=== PATIENT | female | born 1945 | race Caucasian/White ===

== ENCOUNTER 2025-05-02 06:10 | Observation (INO) ==
--- NOTE | 2025-04-06 15:00 | PAT Medication Instructions ---
Medication Instructions Date of Service April 06, 2025 Home Medications Medication Instructions Recorded oxycodone-acetaminophen 5 mg-325 2 tab PO Q6H PRN pain #20 tabs 04/22/23 mg tablet (Percocet) warfarin 2 mg tablet 4 mg (2 x 2 mg) PO DAILY #60 tabs 04/22/23 hydrochlorothiazide 12.5 mg capsule 25 mg PO QAM psyllium husk 3.4 gram/5.4 gram oral powder (Metamucil) 1 tbsp PO DAILY PRN Constipation oxycodone-acetaminophen 5 mg-325 mg tablet (Percocet) 2 tab PO Q6H PRN pain warfarin 2 mg tablet 4 mg (2 x 2 mg) PO DAILY amlodipine 5 mg tablet 5 mg PO PM ibandronate 150 mg tablet 150 mg PO MONTHLY multivitamin 1 tab PO QAM rosuvastatin 10 mg tablet 10 mg PO HS valsartan 40 mg tablet 40 mg PO HS Continue as directed ibandronate 150 mg tablet 150 mg PO MONTHLY ASK your prescriber and surgeon warfarin 2 mg tablet 4 mg (2 x 2 mg) PO DAILY DO NOT take the morning of surgery hydrochlorothiazide 12.5 mg capsule 25 mg PO QAM psyllium husk 3.4 gram/5.4 gram oral powder (Metamucil) 1 tbsp PO DAILY PRN Constipation multivitamin 1 tab PO QAM Take morning of surgery With a small sip of water, OTHERWISE NOTHING TO EAT OR DRINK AFTER MIDNIGHT: oxycodone-acetaminophen 5 mg-325 mg tablet (Percocet) 2 tab PO Q6H PRN pain (if needed) Take evening before surgery psyllium husk 3.4 gram/5.4 gram oral powder (Metamucil) 1 tbsp PO DAILY PRN Constipation (if needed) oxycodone-acetaminophen 5 mg-325 mg tablet (Percocet) 2 tab PO Q6H PRN pain (if needed) amlodipine 5 mg tablet 5 mg PO PM rosuvastatin 10 mg tablet 10 mg PO HS valsartan 40 mg tablet 40 mg PO HS Other Notes If you have any questions please call us at [phone] or [phone] or [phone] or [phone]
--- NOTE | 2025-04-13 15:20 | Anesthesiology Consultation ---
Date of Service April 13, 2025 Assessment & Plan (1) Encounter for pre-operative examination: - Check coags DOS - Infectious disease screening: Per assessment on 04/13/25- No known recent infectious disease contacts or current infectious disease symptoms. - Outpatient joint assessment: Pt currently scheduled for inpatient pathway. If surgeon requests review for outpatient joint pathway, patient is not a recommended candidate for outpatient joint program from anesthesia standpoint based on available information. - S/P Left TKA (04/21/23): SAB L3-4 (1 attempt) + regional at [facility] - Chlorhexidine allergy: Hx itching reaction/allergy listed per records (patient unsure). No chlorhexidine wipes provided for upcoming surgery given documented previous reaction. - Patient acceptable risk for surgery pending surgeon-ordered PCP (Cornelia Flynn PAC, appt done 04/09) and cardiology ([facility], ? writing letter vs appt) preop evaluations. Chart Review Chart Review: Patient seen in Pre Admission Testing Teaching & Discussion Pre-Anesthesia Teaching/Discussion Notes: Instructed NPO after midnight before surgery,except medications with 15 cc of water. Medication instructions provid ed according to the PAT guidelines. History Surgery Operation Date: 05/02/25 08:50 Proposed Procedures p Right Total Knee Arthroplasty - Alex New MD Height/Weight Height: 5 ft 4 in Weight: 63.3 kg Allergies Allergy/AdvReac Type Severity Reaction Status Date / Time chlorhexidine Allergy Mild Itching Verified 04/06/25 13:09 Medications Home Medications Medication Instructions Recorded Confirmed Last Taken hydrochlorothiazide 12.5 mg capsule 25 mg PO QAM 03/29/23 04/06/25 04/20/23 22:00 psyllium husk 3.4 gram/5.4 gram 1 tbsp PO DAILY PRN Constipation 04/21/23 04/06/25 04/20/23 11:00 oral powder (Metamucil) amlodipine 5 mg tablet 5 mg PO PM 04/06/25 04/06/25 Unknown ibandronate 150 mg tablet 150 mg PO MONTHLY 04/06/25 04/06/25 Unknown multivitamin 1 tab PO QAM 04/06/25 04/06/25 Unknown rosuvastatin 10 mg tablet 10 mg PO HS 04/06/25 04/06/25 Unknown valsartan 40 mg tablet 40 mg PO HS 04/06/25 04/06/25 Unknown meclizine DIRECTED PRN Vertigo 04/13/25 Unknown Past Medical History Medical History Hyperlipidemia Hypertension LBBB (left bundle branch block) Follows with [facility] Chronic Sleep apnea "mild", CPAP (uses a few hours/night) Thyroid nodule Vertigo Exercise / Class Metabolic Activity II 4-5 Yardwork/Stairs/Walk up hill (one FS: no CP, no SOB) Past Surgical History Surgical History History of open reduction and internal fixation (ORIF) procedure Right foot Hx of bilateral oophorectomy Hx of colonoscopy Hx of tonsillectomy Nausea and vomiting after administration of anesthetic agent Status post left knee replacement Left TKA (04/21/23): SAB L3-4 (1 attempt) + regional at [facility] Past Anesthesia History No Hx of Anesthesia Complications and No Family Hx of Anesthesia Complications History of PONV No Hx of Motion Sickness and History of PONV Social History Smoking Status: Never smoker Do You Dip or Chew Tobacco: No Hx Alcohol Use: No Hx Substance Use: No substance use type: does not use Review of Systems Patient denies chest pain, shortness of breath, dyspnea on exertion, fever, chills, cough, wheezing. Physical Exam Vital Signs BP 109/73 P 64 TEMP 98.1 SP02 95%RA RESP 16 Physical Mildly decreased cervical extension range of motion. Full TMJ range of motion. TMD 3 finger breaths Mallampati Score II Dentition: intact Lungs: clear throughout to auscultation Cardiac: regular rate and rhythm, no murmurs noted Spine: normal Carotid arteries: negative bruit Extremities: no LE edema Lab Results Anesthesia Preop Results Results Anesthesia Widget: WBC 4.79 K/ul (4.8-10.8) L 04/13/25 Hgb 12.5 g/dl (12.0-16.0) 04/13/25 Hct 36.8 % (37.0-47.0) L 04/13/25 Plt 187 K/uL (130-400) 04/13/25 Na 140 mmol/L (136-145) 04/13/25 K 3.5 mmol/L (3.5-5.1) 04/13/25 Cl 105 mmol/L (98-107) 04/13/25 CO2 28 mmol/L (21-32) 04/13/25 BUN 14 mg/dl (6-23) 04/13/25 Creat 0.68 mg/dl (0.6-1.2) 04/13/25 Glucose Level 110 mg/dl (70-99(Fasting)) H 04/13/25 PT 10.5 Seconds (9.0-12.0) 04/13/25 PTT 28 Seconds (21-31) 04/13/25 INR 1.0 (0.9-1.1) 04/13/25 Urine Color Yellow 04/13/25 Urine Appearance Clear (Clear) 04/13/25 Urine pH 5.5 (4.5-7.5) 04/13/25 Urine Specific [place] 1.016 (1.000-1.030) 04/13/25 Urine Protein Negative (Negative) 04/13/25 Urine Glucose (UA) Negative (Negative) 04/13/25 Urine Ketones Negative (Negative) 04/13/25 Urine Blood Negative (Negative) 04/13/25 Urine Nitrite Negative (Negative) 04/13/25 Urine Bilirubin Negative (Negative) 04/13/25 Urine Urobilinogen Negative (Negative) 04/13/25 Urine Leukocyte Esterase 1+ (Negative) H 04/13/25 Urine WBC (Auto) 0-5 /hpf (0-5) 04/13/25 Urine RBC (Auto) 0-2 /hpf (0-2) 04/13/25 Urine Hyaline Casts (Auto) 0-2 /lpf (0-2) 04/13/25 Urine Epithelial Cells (Auto) 0-2 /hpf (0-2) 04/13/25 Urine Bacteria (Auto) None Seen (None Seen) 04/13/25 Blood Type O Positive 04/13/25 Antibody Screen NEGATIVE 04/13/25 Testing Electrocardiogram Date: 04/13/25 NSR at 64bpm. LAD. NS IVCD. Minimal voltage criteria for LVH, may be normal variant (Bladimir product). Chest X-Ray Date: 04/13/25 Findings: + NAD Echocardiogram Date: 03/16/25 EF 55%. Wall motion is normal. No RWMA. Grade I DD. No significant valvular disease.
--- NOTE | 2025-05-01 15:51 | History & Physical Bridge Note ---
Date of Service May 01, 2025 History & Physical Bridge Note I have examined the patient, reviewed the History & Physical and in the interval since the performance of the History & Physical I have noted the following changes of clinical significance: no changes noted
--- NOTE | 2025-05-01 15:51 | History & Physical Bridge Note ---
Date of Service May 01, 2025 History & Physical Bridge Note I have examined the patient, reviewed the History & Physical and in the interval since the performance of the History & Physical I have noted the following changes of clinical significance:Consent and site verified for right knee replacement. Emphasized arthrofibrosis infection DVT PE as major concerns. no changes noted
[2025-05-02] MEDS ORDERED: ROPIVACAINE 0.5% 5 MG/ML 30 ML VIAL ONE (06:32)
[2025-05-02] MEDS: LR 500ML BOLUS, THEN 15ML/HR IV SCH (07:05)
[2025-05-02] MEDS: LR 60ML/HR IV SCH (07:06)
[2025-05-02] MEDS ORDERED: MIDAZOLAM HCL 1 MG/ML 2ML VIAL ONE ×2 (07:49)
[2025-05-02] MEDS ORDERED: KETOROLAC 30 MG/ML VIAL IV PRN (07:57)
[2025-05-02] MEDS ORDERED: ONDANSETRON INJ 2 MG/ML 2 ML VIAL IV PRN ×2 (07:57→12:52)
[2025-05-02] MEDS ORDERED: HYDROmorphone INJ 1 MG/ML SYRINGE IV PRN (07:57)
[2025-05-02] MEDS ORDERED: ATROPINE SULFATE 0.1 MG/ML 10ML SYR IV PRN (07:57)
[2025-05-02] MEDS: TRANEXAMIC ACID 1,000 MG **IV Pre-op IV SCH (08:34)
[2025-05-02] MEDS: ORTHO JOINT ANESTHETIC ONE (09:46)
[2025-05-02] MEDS ORDERED: ePHEDrine sulfate 50 MG/5 ML SYR ONE (10:38)
[2025-05-02] MEDS ORDERED: PROPOFOL IV EMULSION 10 MG/ML 20 ML VIAL IV ONE (10:38)
[2025-05-02] MEDS ORDERED: LIDOCAINE 2% 2 ML VIAL/AMP(20MG/ML) INFIL ONE (10:38)
[2025-05-02] MEDS: ROPIV 0.5% 246mg, Ketorolac 30mg, EPINEPHrine 0.5mg in NSS INFIL SCH (10:48)
--- NOTE | 2025-05-02 10:53 | Post Operative Brief Note ---
Immediate Post Op Note Date of Surgery May 02, 2025 Pre & Post Diagnosis Operation Date: 05/02/25 08:50 <No data on this case meets the specified criteria> Osteoarthritis right knee pre and postop diagnosis same I identified the patient and participated in the time-out.: Yes Procedure Operation Date: 05/02/25 08:50 <No data on this case meets the specified criteria> Cemented right total knee replacement Surgeon Alex New MD Supervisor Assembly [facility] or fellow available Estimated Blood Loss 30 Findings Consistent with Post-Op Diagnosis Grade 4 medial disease over 50% of the compartment grade 4 patellofemoral disease medial and and central trochlea and medial patella Fluids 1200 cc Complications None
--- NOTE | 2025-05-02 10:57 | Operative Report ---
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 A tourniquet was plated to 275 mmHg for a total of 53 minutes. Midline exposure utilized parapatellar thyrotomy performed synovectomy completed osteophytes resected distal femur entered cruciates resected tibia subluxated menisci resected distal femur then resected 10 mm proximal tibia 4 mm the extension gap was excellent. Femur was sized anywhere between a 4 and a 6 was measured 6 cut 5 no notching flexion gap was checked it was excellent the box cut was then made required 1 revision on the box cut to get the 5 to sit well. Seating lug hole drill sites were then made. Trial was then seated and fit well. Tibia's and subluxation was broached reamed for size 4 tibia 6 mm and 7 mm spacer were trialed the 6 fit better. Patella was then noted to be about 35 mm in size was resected leaving about 15 mm or so. Seating holes made in the patella trial tracked well. Ortho mix was then injected all about the knee including posteriorly all trial implants were removed the knee was then sent Pulsavac and soaked in Betadine for 3 minutes and the permanent implants cemented into position tibia femur patella and out of order. Trial reduction was carried with a 6 mm spacer while the cement cured. After 12 minutes tourniquet was deflated minor bleeding points controlled electrocautery there was minimal bleeding total bleeding blood loss was roughly 30 cc or less. After 14 minutes the knee was then checked the spacer trial implant was removed there was no cement were required it was then irrigated with Pulsavac soaked in Betadine the permanent liner seated the knee reduced and closed at 40 degrees of flexion using #2 Vicryl 2-0 Vicryl and stainless steel clips appropriate dressings were applied patient transferred recovery in satisfactory descending tolerated procedure well. EBL again 30 cc or less crystalloid 12 roughly 900 cc DVT prophylaxis to begin tomorrow. Family contacted. X-rays pending in recovery room. Summary of implants size 5 femur size 4 tibia size 5 spacer matching the femur 6 mm thick size 35 patella 2 bags of [place] G cement these were all DePuy Synthes ATT UNE total knee system. This was a rotating platform system posterior cruciate substituting. I attest to the content of the Intraoperative Record and any orders documented therein. Any exceptions are noted below.
--- NOTE | 2025-05-02 11:01 | Orthopedic Progress Note ---
Date of Service May 02, 2025 Orthopedic Progress Note Underwent cemented right total knee replacement did well denies chest pain shortness of breath fever chills nausea vomiting or headache. Vital signs are stable she is afebrile. Neurovascular check limited by spinal x-ray pending. Family contacted. Son's phone number Kalen is [phone]
--- NOTE | 2025-05-02 11:03 | Discharge Summary ---
Date of Service May 03, 2025 Admission HPI Per Admitting Provider Osteoarthritis right knee Principal Diagnosis Osteoarthritis right knee status post right total knee replacement cemented Discharge Data Allergies Allergy/AdvReac Type Severity Reaction Status Date / Time chlorhexidine Allergy Mild Itching Verified 05/02/25 06:45 Vaccinations None Consultations None Procedures Performed Operation Date: 05/02/25 08:50 Actual Procedures p Right Total Knee Arthroplasty(Right) - Alex New MD Ordered Studies 05/02/25 05:00 US - OR guided needle placemen Routine Hospital Course (1) Status post right knee replacement: Care plan for total knee replacement Plan Care plan for total knee replacement Total Time Total Time Spent Total Time Spent (In Minutes): 5 Discharge Plan Discharge Items Reason For Visit: Right Knee Osteoarthritis Follow-up/Referrals: Luis M Guthrie M.D. [Primary Care Provider] - Medications and DC Order Prescriptions: No Action hydrochlorothiazide 12.5 mg Capsule 25 mg PO QAM Rx Instructions: second dose if necessary Metamucil 3.4 gram/5.4 gram Powder 1 tbsp PO DAILY PRN (Reason: Constipation) Rx Instructions: mix into at least 8 oz of water or juice before administering amlodipine 5 mg Tablet 5 mg PO PM valsartan 40 mg Tablet 40 mg PO HS rosuvastatin 10 mg Tablet 10 mg PO HS ibandronate 150 mg Tablet 150 mg PO MONTHLY multivitamin Tablet 1 tab PO QAM meclizine 12.5 mg Tablet 12.5 mg PO TID PRN (Reason: Dizziness Or Vertigo) Admission Data Admit Date/Time: 05/02/25 11:14 Attending Provider: Alex New Admit Provider: Alex New Primary Care Provider: Luis M Guthrie
--- NOTE | 2025-05-02 11:07 | Operative Report ---
Post Operative Report Pre & Post Diagnosis Operation Date: 05/02/25 08:50 Pre-Op Diagnosis: Right Knee Osteoarthritis Post-Op Diagnosis: Right Knee Osteoarthritis I identified the patient and participated in the time-out.: Yes Procedure Operation Date: 05/02/25 08:50 Actual Procedures p Right Total Knee Arthroplasty(Right) - Alex New MD Surgeon ALIX New MD Dental Hygienist [facility] no resident or fellow available Estimated Blood Loss 30 Findings Consistent with Post-Op Diagnosis see operative report Specimens see operative report Drains none Complications none Disposition Accompanied Patient To Recovery: Yes Indications This 80 year old female presented to the office with complaints of persisting right knee pain. She had tried conservative care measures without improvement. She elected to proceed with surgical intervention after being educated about potential risks and outcomes. Preoperative imaging was obtained. Description of Procedure The patient was administered a spinal anesthetic and then taken to the operating room where she was given sedation. She was prepped and draped in the usual sterile fashion. Please see Dr. New's operative report for specifics of the procedure. I was present for the entire case for initial patient positioning through final wound closure. Assistance was provided in tissue retraction, hemostasis, trial implant placement, final implant placement, and final wound closure. The patient was taken to the recovery room in satisfactory condition. I attest to the content of the Intraoperative Record and any orders documented therein. Any exceptions are noted below.
--- NOTE | 2025-05-02 11:19 | XRay Report ---
XR knee RT 1 or 2V routine CLINICAL HISTORY: S/P R TKA COMPARISON: 02/05/2025 FINDINGS: Right knee prosthesis shows no hardware complication. There is expected soft tissue gas. S kin salina are present. IMPRESSION: Unremarkable postoperative exam. ACT 112: Negative or not required by law. Electronically signed by: Garrett Brock M.D. 05/02/2025 11:17 AM
--- NOTE | 2025-05-02 11:45 | Orthopedic Progress Note ---
Date of Service May 02, 2025 Subjective Postop check status post right total knee replacement cemented. She is resting comfortably. She denies chest pain shortness of breath fever chills nausea vomiting or headache. Spinal still in place. Wound dressing clean dry and intact. Postop x-rays look excellent. Assessment done doing well status post right cemented knee replacement. Initiate mobilization as soon as legs wake up from her spinal anesthetic. Initiate diet. DVT PE prophylaxis to begin tomorrow. Results & Data Vital Signs (Past 12 Hours) Vital Signs Temp Pulse Pulse Resp BP Pulse Ox O2 Del Method 05/02/25 11:30 70 16 113/57 L 94 Room Air 05/02/25 11:20 68 16 117/62 97 Room Air 05/02/25 11:10 66 16 114/58 L 100 Oxymask 05/02/25 11:03 36.2 C L 69 18 116/56 L 100 Oxymask 05/02/25 06:45 36.8 C 63 18 155/67 H 97 Room Air O2 Flow Rate 05/02/25 11:30 05/02/25 11:20 05/02/25 11:10 2 05/02/25 11:03 4 05/02/25 06:45
[2025-05-02] MEDS ORDERED: NALOXONE HCL 0.4 MG/1 ML VIAL/CARP IV PRN (12:52)
[2025-05-02] MEDS ORDERED: diphenhydrAMINE 50 MG/ML VIAL IV PRN (12:52)
[2025-05-02] MEDS ORDERED: ALUMINUM/MAGNESIUM SUSP 30 ML UDC PO PRN (12:52)
[2025-05-02] MEDS ORDERED: MAGNESIUM HYDROXIDE SUSP 30 ML UDC PO PRN (12:52)
[2025-05-02] MEDS ORDERED: HYDROmorphone INJ 0.5 MG/0.5 ML SYR IV PRN (12:52)
[2025-05-02] MEDS ORDERED: VANCOMYCIN CONSULT ACTIVE PRN (12:52)
[2025-05-02] MEDS ORDERED: MECLIZINE 12.5 MG TAB PO PRN (12:52)
[2025-05-02] MEDS ORDERED: METOCLOPRAMIDE HCL INJ 5 MG/ML 2 ML VIAL IV PRN (12:52)
[2025-05-02] MEDS: SODIUM CHLORIDE 0.9% 1,000 ML IV SCH (14:10)
[2025-05-02 14:25] VITALS: RESP 16
--- NOTE | 2025-05-02 14:25 | Orthopedic Progress Note ---
Date of Service May 02, 2025 Assessment & Plan Admission and Anticipated Discharge Date Admission Date: May 02, 2025 Orthopedic Progress Note Patient sitting up eating lunch. Denies any chest pain shortness of breath fever chills nausea headache. Vital signs are stable she is afebrile. Neurovascular exam is within normal limits can do ankle dorsi and plantarflexion can do knee extension can flex her knee to almost 90 degrees. Assessment status post total knee replacement right lower extremity doing well continue care pathway mobilize saline lock IV fluid use for medications only. Discharge tomorrow per protocol.
--- NOTE | 2025-05-02 14:49 | Anesthesiology Progress Note ---
Date of Service May 02, 2025 Anesthesia Post Procedure Vital Signs Vital Signs: Temp Pulse Pulse Resp BP Pulse Ox O2 Del Method 05/02/25 14:24 75 16 109/60 95 Room Air 05/02/25 13:00 79 14 106/53 L 95 Room Air 05/02/25 12:45 73 12 111/60 97 Room Air 05/02/25 12:30 64 14 105/68 98 Room Air 05/02/25 12:15 67 15 115/56 L 96 Room Air 05/02/25 12:00 36.4 C L 68 14 116/54 L 95 Room Air 05/02/25 11:50 76 18 121/66 95 Room Air 05/02/25 11:40 67 16 117/62 95 Room Air 05/02/25 11:30 70 16 113/57 L 94 Room Air 05/02/25 11:20 68 16 117/62 97 Room Air 05/02/25 11:10 66 16 114/58 L 100 Oxymask 05/02/25 11:03 36.2 C L 69 18 116/56 L 100 Oxymask 05/02/25 06:45 36.8 C 63 18 155/67 H 97 Room Air O2 Flow Rate 05/02/25 14:24 05/02/25 13:00 05/02/25 12:45 05/02/25 12:30 05/02/25 12:15 05/02/25 12:00 05/02/25 11:50 05/02/25 11:40 05/02/25 11:30 05/02/25 11:20 05/02/25 11:10 2 05/02/25 11:03 4 05/02/25 06:45 Transfer of Care Handoff Completed per policy Notes Mental Status: alert / awake / arousable Patient Amnestic to Procedure: Yes Nausea / Vomiting: adequately controlled Pain: adequately controlled Airway Patency, RR, SpO2: stable & adequate BP & HR: stable & adequate Hydration State: stable & adequate Anesthetic Complications: no major complications apparent
[2025-05-02] MEDS: VANCOMYCIN HCL 1,000 MG in SODIUM CHLORIDE 0.9% 250 ML IV ONE (14:56)
[2025-05-02] MEDS: ACETAMINOPHEN 500 MG TAB PO SCH (15:01)
[2025-05-02] MEDS: KETOROLAC TROMETHAMINE 15 MG/ML VIAL IV SCH (15:02)
[2025-05-02] MEDS: ASCORBIC ACID 500 MG TAB PO SCH (21:07)
[2025-05-02] MEDS: SENNA 8.6 MG TAB PO SCH (21:07)
[2025-05-02] MEDS: ROSUVASTATIN CALCIUM 10 MG TAB PO SCH (21:11)
[2025-05-02] MEDS: FERROUS GLUCONATE 324 MG TAB PO SCH (21:12)
[2025-05-02] MEDS: DOCUSATE SODIUM 100 MG CAP PO SCH (21:12)
[2025-05-02] MEDS: VALSARTAN 80 MG TAB PO SCH (21:13)
[2025-05-03 07:21] VITALS: BP 118/69; PULSE 76; TEMP 98.2; O2SAT 95
--- NOTE | 2025-05-03 07:44 | Orthopedic Progress Note ---
Date of Service May 03, 2025 Assessment & Plan Admission and Anticipated Discharge Date Admission Date: May 02, 2025 Orthopedic Progress Note Postop day 1 status post right total knee replacement. Patient is doing well denies chest pain shortness of breath fever chills nausea vomiting or headache. Vital signs are stable she is afebrile. Neurovascular check femoral sciatic nerve is normal. Can do a straight leg raise. Calves nontender. A.m. labs pending. Assessment doing well discharged home today after PT OT. Follow-up in 2 weeks. Initiate anticoagulation today.
[2025-05-03] MEDS: dexAMETHasone 10 MG in SYRINGE 0 ML IV SCH (08:01)
[2025-05-03] MEDS: MULTIVITAMIN TAB PO SCH (08:02)
[2025-05-03] MEDS: APIXABAN 2.5 MG TAB PO SCH (08:02)
[2025-05-03] MEDS: hydroCHLOROthiazide 25 MG TAB PO SCH (08:05)
--- NOTE | 2025-05-03 10:50 | Orthopedic Progress Note ---
Date of Service May 03, 2025 Assessment & Plan (1) Status post right knee replacement: Plan: The patient was educated regarding today's findings. Her surgical dressings were changed by me. Chanel stocking was applied. She can keep the dressings in place through the weekend and home health may change them on Wednesday if needed for soiling. She may also leave them in place until she sees me in the office in 2 weeks as long as they remain dry. She will be discharged to home today with home health services already being established. Postoperative prescriptions for [place] 5 mg and Eliquis 2.5 mg were sent to her pharmacy. She will use the knee immobilizer when out of bed today and tomorrow. It can be discontinued entirely on Wednesday morning. Continue with the CHANEL stockings for 6 weeks. Written discharge instructions were provided. Call the office with any other concerns. Admission and Anticipated Discharge Date Admission Date: May 02, 2025 Subjective This 80-year-old female is seen today in her room. She is 1 day status post right total knee arthroplasty. He states she did fairly well overnight. She denies any chest pain, shortness of breath, nausea, vomiting, abdominal pain, or significant knee pain. She has already participated with physical therapy. She is waiting for occupational therapy. She states there is no knee pain while at rest. She feels ready to go home. No additional complaints. Review of Systems Review of Systems: Unchanged from yesterday. Physical Exam Physical Exam: General: Well-developed, well-nourished, elderly female, in no acute distress. Laying in bed. Alert and oriented. Skin: Warm and dry with good turgor. No rashes. Postsurgical dressings are in place on the right knee. Upon removal, there is scant dried blood on her dressings. Josh are in place. Wound edges well-approximated. No erythema or warmth. Expected postoperative edema. No ecchymosis. No active bleeding. Musculoskeletal: Right knee evaluation reveals full terminal extension. She has intact straight leg raise. Active flexion to around 45 degrees with ease. Intact motor function of the ankle and toes. Neurologic: Gross sensation is intact across the right leg by soft touch. Peripheral pulses are 2+. Results & Data Vital Signs (Past 12 Hours) Vital Signs Temp Pulse Resp BP Pulse Ox O2 Del Method 05/03/25 07:19 36.8 C 76 16 118/69 95 Room Air 05/03/25 03:53 36.6 C 66 16 121/71 96 Room Air 05/02/25 23:27 36.5 C 75 16 108/62 97 Room Air Laboratory Results Morning labs are still not resulted
== END 2025-05-03 13:02 | disposition home health service (06) ==
LOC: ASU 06:10 → PACUINP 06:10 → 3W 06:10